=== PATIENT | female | born 1975 | race African-American/Black ===

== ENCOUNTER 2016-07-13 22:46 | Emergency (ER) | payer BC ==
[~2016-07-13 22:46] MED LIST: NO MEDICATIONS
== END 2016-07-13 23:32 | disposition home or self-care (01) ==
LOC: SED 22:46
DX: L02.214 Cutaneous abscess of groin (principal); Z98.51 Tubal ligation status
CPT/HCPCS: 10060; 87070; 87077; 87186; 87205; 99283